=== PATIENT | female | born 1955 | race Two or more races ===

== ENCOUNTER → 2021-03-17 | Outpatient (CLI) | payer OTHER ==
[2021-03-17 09:55] LABS: Basophils # (auto) 0 10 ^3/uL (0-0.2); Basophils % (auto) 0.7 % (0.0-2.0); Eosinophils # (auto) 0.3 10 ^3/uL (0-0.8); Hematocrit 40.7 % (36.0-46.0); Hemoglobin 14.2 g/dL (12.2-16.2); Lymphocytes # (auto) 2.7 10 ^3/uL (0.4-5.4); Mean Corpuscular Hemoglobin 31.7 pg (28.0-32.0); Mean Corpuscular Hgb Conc. 34.8 g/dL (32.0-36.0); Mean Corpuscular Volume 91.2 fL (80.0-100.0); Monocytes # (auto) 0.5 10 ^3/uL (0-1.3); Monocytes % (auto) 7.9 % (0.0-12.0); Neutrophils # (auto) 2.8 10 ^3/uL (1.6-8.6); Neutrophils % (auto) 44.4 % (37.0-80.0); Red Blood Cells 4.46 10^6/uL (4.0-5.20); Red Cell Distribution Width 12.9 % (11.8-14.3); White Blood Cell 6.3 10^3/uL (4.4-10.8)
[2021-03-17 10:57] LABS: BUN/Creatinine Ratio 19.2; Calcium 9.5 mg/dL (8.5-10.1)
== END | disposition home or self-care (01) ==
LOC: LAB 09:34
PROVIDERS: ATTEND Internal Medicine Gastroenterology
DX: E11.9 Type 2 diabetes mellitus without complications (principal); R10.12 Left upper quadrant pain; R94.5 Abnormal results of liver function studies; K90.9 Intestinal malabsorption, unspecified
CPT/HCPCS: 36415; 80048; 80061; 82150; 83036; 83690; 85025; 85049

== ENCOUNTER 2022-11-19 07:59 | Emergency (ER) | payer OTHER, MEDICAID ==
[~2022-11-19] VITALS: Ht 152.4 cm; Wt 68.0 kg
[2022-11-19 08:57] LABS: Urine Bacteria NONE SEEN /hpf (None Seen); Urine Blood Negative /uL (Negative); Urine Specific Gravity 1.016 (1.001-1.035); Urine WBC 13 /hpf (0 - 5)
[2022-11-19 09:04] LABS: Basophils # (auto) 0 10 ^3/uL (0-0.2); Basophils % (auto) 0.3 % (0.0-2.0); Eosinophils # (auto) 0 10 ^3/uL (0-0.8); Eosinophils % (auto) 0.1 % (0.0-7.0); Hematocrit 40.7 % (36.0-46.0); Hemoglobin 13.9 g/dL (12.2-16.2); Lymphocytes # (auto) 2.3 10 ^3/uL (0.4-5.4); Lymphocytes % (auto) 17.8 % (10.0-50.0); Mean Corpuscular Hemoglobin 31.7 pg (28.0-32.0); Mean Corpuscular Hgb Conc. 34.1 g/dL (32.0-36.0); Mean Corpuscular Volume 92.9 fL (80.0-100.0); Monocytes # (auto) 0.8 10 ^3/uL (0-1.3); Monocytes % (auto) 6.6 % (0.0-12.0); Neutrophils # (auto) 9.6 10 ^3/uL (1.6-8.6); Neutrophils % (auto) 75.2 % (37.0-80.0); Nucleated Red Blood Cells % 0.4 %; Red Blood Cells 4.38 10^6/uL (4.0-5.20); White Blood Cell 12.8 10^3/uL (4.4-10.8)
[2022-11-19 09:32] LABS: Calcium 9.3 mg/dL (8.5-10.1); Potassium 3.8 mmol/L (3.5-5.1)
[2022-11-19 09:35] LABS: BUN/Creatinine Ratio 35.6; Bilirubin, Total 0.5 mg/dL (0.2-1.0)
[2022-11-19 10:06] VITALS: BP 144/79
== END 2022-11-19 10:08 | disposition home or self-care (01) ==
LOC: ER 07:59
DX: R51.9 Headache, unspecified (principal); R42 Dizziness and giddiness; R11.0 Nausea; R00.2 Palpitations; I10 Essential (primary) hypertension; E11.9 Type 2 diabetes mellitus without complications
CPT/HCPCS: 36415; 70450; 80053; 81001; 82962; 85025; 93005

== ENCOUNTER 2025-05-30 11:58 | Emergency (ER) | payer OTHER, MEDICAID ==
[~2025-05-30] VITALS: Ht 152.4 cm; Wt 70.9 kg
[~2025-05-30 11:58] MED LIST: COLC1CAP PO; INDO50CA82 PO
--- NOTE | 2025-05-30 12:22 | ED.PDOC ---
GI ASSESSMENT HPI Comments This is a 70 year old female presenting to the ED with chief complaint of abdominal pain. Patient reports that she has been experiencing epigastric abdominal pain with associated nausea, diarrhea, dysuria, and fever for the past 3 days. Patient relays that her pain radiates into her back and is a 9/10. Patient denies any vomiting, chills, headache, chest pain, SOB, hematuria, or flank pain. Chief Complaint: Abdominal Pain Time Seen by MD: 12:20 Reviewed Notes: Nurses Notes, Medications, Allergies Allergies: Coded Allergies: NO KNOWN ALLERGIES (Unverified , 11/19/22) Home Meds Active Scripts Indomethacin (Indomethacin) 50 Mg Cap, 1 CAP PO TID PRN for 5 Days, #15 CAP 1 Refill Prov:NATACHA HATFIELD NP 02/05/24 Colchicine (Colchicine) 0.6 Mg Cap, 0.6 MG PO DAILY PRN for 10 Days, #10 CAP Take one tablet today, wait 1 hour before taking a 2nd dose. May repeat dose in three days if needed. Prov:NATACHA HATFIELD NP 02/05/24 Information Source: Patient, Spouse Mode of Arrival: Ambulatory Timing: Days Duration: Since onset Prehospital treatment: None Quality: Sharp Vomitus: None Stool: Watery Severity: Moderate Recent: None Recent Hx of: None Pain Location: Epigastric Modifying Factors: Nothing Associated sign and symptoms: Nausea, Diarrhea, Abdominal Pain, Fever Past Medical History PAST MEDICAL HISTORY: DM, High Lipids, HTN Surgical History (Other): Neck surgery, left leg surgery, right shoulder surgery PARTS ORDER AND STOCK CLERK History: Denies all PARTS ORDER AND STOCK CLERK Hx Family History Family History: Reviewed,noncontributory to illness Social History Smoker: Non-Smoker Alcohol: Denies ETOH Use Drugs: Denies Drug Use Lives In: Home Constitutional: reports: fever; denies: chills, diaphoresis, fatigue, malaise, sweats, weakness, others EENTM: denies: blurred vision, double vision, ear bleeding, ear discharge, ear drainage, ear pain, ear ringing, eye pain, eye redness, hearing loss, mouth pain, mouth swelling, nasal discharge, nose bleeding, nose congestion, nose pain, photophobia, tearing, throat pain, throat swelling, voice changes, others Respiratory: denies: cough, hemoptysis, orthopnea, SOB at rest, shortness of breath, SOB with excertion, stridor, wheezing, others Cardiovascular: denies: chest pain, dizzy spells, diaphoresis, Dyspnea on exertion, edema, irregular heart beat, left arm pain, lightheadedness, palpitations, PND, syncope, others Gastrointestinal: reports: abdominal pain, diarrhea, nausea; denies: abdomen distended, blood streaked bowels, constipated, dysphagia, difficulty swallowing, hematemesis, melena, poor appetite, poor fluid intake, rectal bleeding, rectal pain, vomiting, others Genitourinary: reports: dysuria; denies: abnormal vagina bleeding, burning, dyspareunia, flank pain, frequency, hematuria, incontinence, pain, , vagina discharge, urgency, others Neurological: denies: dizziness, fainting, headache, left sided numbness, left sided weakness, numbness, paresthesia, pre-existing deficit, right sided numbness, right sided weakness, seizure, speech problems, tingling, tremors, weakness, others Musculoskeletal: denies: back pain, gout, joint pain, joint swelling, muscle p ain, muscle stiffness, neck pain, others Integumetry: denies: bruises, change in color, change in hair/nails, dryness, laceration, lesions, lumps, rash, wounds, others Allergic/Immunocompromised: denies: Difficulty Healing, Frequent Infections, Hives, Itching, others Hematologic/Lymphatic: denies: anemia, blood clots, easy bleeding, easy bruising, swollen glands, others Endocrine: denies: excessive hunger, excessive sweating, excessive thirst, excessive urination, flushing, intolerance to cold, intolerance to heat, unexplained weight gain, unexplained weight loss, others Psychiatric: denies: anxiety, bipolar disorder, depression, hopeless, panic disorder, schizophrenia, sleepless, suicidal, others All Other Systems: Reviewed and Negative Physical Exam General Appearance: Moderate Distress HEENT: Normal ENT Inspection, Pharynx Normal, TMs Normal Neck: Full Range of Motion, Non-Tender, Normal, Normal Inspection Respiratory: Chest Non-Tender, Lungs Clear, No Accessory Muscle Use, No Respiratory Distress, Normal Breath Sounds Cardiovascular: No Edema, No JVD, No Murmur, No Gallop, Normal Peripheral Pulses, Regular Rate/Rhythm Breast Exam: Deferred Gastrointestinal: Epigastric, No Organomegaly, No Pulsatile Mass, Normal Bowel Sounds, Soft, Tenderness Genitalia: Deferred Pelvic: Deferred Rectal: Deferred Extremities: No calf tenderness, Normal capillary refill, Normal inspection, Normal range of motion, Non-tender, No pedal edema Musculoskeletal : Apperance: Normal Neurologic: Alert, freight coordinator II-XII nml as Tested, No Motor Deficits, Normal Affect, Normal Mood, No Sensory Deficits Cerebellar Function: Normal Reflexes: Normal Skin: Dry, Normal Color, Warm Lymphatic: No Adenopathy Was a procedure done? Was a procedure done?: No GI differential Dx Differential Diagnosis: Gastritis/PUD, Gastroenteritis, Inflammatory BD, Isch emic Bowel, Pancreatitis, Electrolyte Imbalance, Food Poisoning X-Ray, Labs, Meds, VS Vital Signs Date Time Temp Pulse Resp B/P (MAP) Pulse Ox O2 Delivery O2 Flow Rate FiO2 05/30/25 12:00 98.1 90 16 116/47 98 98.1 Lab Test 05/30/25 13:10 Range/Units White Blood Count 5.4 4.4-10.8 10^3/uL Red Blood Count 4.24 4.0-5.20 10^6/uL Hemoglobin 13.5 12.2-16.2 g/dL Hematocrit 38.4 36.0-46.0 % Mean Corpuscular Volume 90.6 80.0-100.0 fL Mean Corpuscular Hemoglobin 31.8 28.0-32.0 pg Mean Corpuscular Hemoglobin Concent 35.1 32.0-36.0 g/dL Red Cell Distribution Width 13.3 11.8-14.3 % Platelet Count 110 L 140-450 10^3/uL Mean Platelet Volume 8.6 6.9-10.8 fL Neutrophils (%) (Auto) 65.3 37.0-80.0 % Lymphocytes (%) (Auto) 24.0 10.0-50.0 % Monocytes (%) (Auto) 10.2 0.0-12.0 % Eosinophils (%) (Auto) 0.1 0.0-7.0 % Basophils (%) (Auto) 0.4 0.0-2.0 % Neutrophils # (Auto) 3.5 1.6-8.6 10 ^3/uL Lymphocytes # (Auto) 1.3 0.4-5.4 10 ^3/uL Monocytes # (Auto) 0.5 0-1.3 10 ^3/uL Eosinophils # (Auto) 0 0-0.8 10 ^3/uL Basophils # (Auto) 0 0-0.2 10 ^3/uL Nucleated Red Blood Cells 0.1 % Sodium Level 139 136-145 mmol/L Potassium Level 3.4 L 3.5-5.1 mmol/L Chloride Level 104 98-107 mmol/L Carbon Dioxide Level 20 20-31 mmol/L Anion Gap 15 5-15 Blood Urea Nitrogen 14 9-23 mg/dL Creatinine 1.06 H 0.550-1.02 mg/dL Glomerular Filtration Rate Calc 56 >90 mL/min BUN/Creatinine Ratio 13.2 10.0-20.0 Serum Glucose 117 H 74-106 mg/dL Calcium Level 9.1 8.7-10.4 mg/dL Total Bilirubin 0.6 0.2-1.0 mg/dL Aspartate Amino Transferase (AST) 38 13-40 U/L Alanine Aminotransferase (ALT) 17 7-40 U/L Alkaline Phosphatase 58 46-116 U/L Total Protein 7.4 5.7-8.2 g/dL Albumin 4.4 3.2-4.8 g/dL Lipase 101 H 12-53 U/L Current Medications Medications (Trade) Dose Ordered Sig/Obinna Route Start Time Stop Time Status Last Admin Ondansetron HCl (Zofran) 4 mg ONCE ONCE IV 05/30/25 12:30 05/30/25 12:31 DC 05/30/25 13:19 Sodium Chloride 500 ml @ 500 mls/hr Q1H ONCE IVB 05/30/25 12:30 05/30/25 13:29 DC 05/30/25 13:19 Pantoprazole Sodium (Protonix) 40 mg ONCE ONCE IV 05/30/25 12:30 05/30/25 12:31 DC 05/30/25 13:19 Gallbladder US indicates: Sludge within the gallbladder. Otherwise, the gallbladder is unremarkable. 4.5 cm right renal cyst. Pancreas is obscured by bowel gas. IV Hep-Lock was established. The patient was given normal saline as a 500 cc bolus The patient was given Zofran 4 mg IV push The patient was given Protonix 40 mg IV push The lipase is elevated at 101 The chemistry panel shows a creatinine of 1.06 The rest of the CBC is within normal limits At this time, the patient will be admitted to the hospitalist The patient understands and agrees with the management. Images Reviewed?: Images reviewed and evaluated by me Time of 1ST Reevaluation: 16:30 Reevaluation 1ST: Unchanged Patient Education/Counseling: Diagnosis, Treatment, Prognosis Family Education/Counseling: Diagnosis, Treatment, Prognosis SEPSIS Sepsis Screen Date sepsis recognized/suspect: May 30, 2025 Time Sepsis recognized/suspect: 1202 Recent Procedure: No On Antibiotic Therapy: No Respiratory Rate >20: No Heart Rate >90: No Temp<36 C (96.8 F) or >38.3 C: No SBP <90 or MAP <65 mmHG: No New Acute Mental Status Change: No Is the patient on CPAP, BIPAP,: No Physician Orders Urinalysis (05/30/25 12:19) Heplock Iv (05/30/25 12:19) Gallbladder (05/30/25 12:19) Vital Signs Date Time Temp Pulse Resp B/P (MAP) Pulse Ox O2 Delivery O2 Flow Rate FiO2 05/30/25 12:00 98.1 90 16 116/47 98 98.1 Laboratory Tests Test 05/30/25 13:10 White Blood Count 5.4 10^3/uL (4.4-10.8) Medications Medications Dose Ordered Sig/Obinna Route Start Time Stop Time Status Last Admin Dose Admin Ondansetron HCl 4 mg ONCE ONCE IV 05/30/25 12:30 05/30/25 12:31 DC 05/30/25 13:19 Pantoprazole Sodium 40 mg ONCE ONCE IV 05/30/25 12:30 05/30/25 12:31 DC 05/30/25 13:19 Sodium Chloride 500 ml @ 500 mls/hr Q1H ONCE IVB 05/30/25 12:30 05/30/25 13:29 DC 05/30/25 13:19 Departure 1 Departure Time of Disposition: 16:30 Impression: Primary Impression: Intractable abdominal pain Additional Impression: Cholelithiasis Qualified Codes: K80.20 - Calculus of gallbladder without cholecystitis without obstruction Disposition: 09 ADMITTED INPATIENT Admit to: Med Surg Condition: Fair Critical Care Note Critical Care Time?: No Stability Stability form required: Yes Unstable for transfer: ED Physician Assesment (Clinical assesment) Heart Score Heart Score: Heart Score Response (Comments) Value History N/A 0 EKG N/A 0 Age N/A 0 Risk Factors N/A 0 Troponin N/A 0 Total 0 I personally scribed for CRISS PRUITT MD ([email or web address]) on 05/30/25 at 12:22. Electronically submitted by Catracho Garcia ([email or web address]). I personally scribed for CRISS PRUITT MD ([email or web address]) on 05/30/25 at 13:56. Electronically submitted by Catracho Garcia ([email or web address]). CRISS PRUITT MD May 30, 2025 12:22
[2025-05-30] MEDS: ONDANSETRON HCL 4 MG/2 ML VIAL IV ONE ×2 (13:19→23:12)
[2025-05-30] MEDS: SODIUM CHLORIDE 0.9% 500 ML IVB ONE (13:19)
[2025-05-30] MEDS: PANTOPRAZOLE 40 MG/10 ML VIAL INJ IV ONE (13:19)
[2025-05-30 13:25] LABS: Hematocrit 38.4 % (36.0-46.0); Hemoglobin 13.5 g/dL (12.2-16.2); Mean Corpuscular Hemoglobin 31.8 pg (28.0-32.0); Mean Corpuscular Volume 90.6 fL (80.0-100.0); Nucleated Red Blood Cells % 0.1 %
--- NOTE | 2025-05-30 13:35 | DVH ---
Procedure: US GALLBLADDER Study Date and Requested Time: 05/30/2025 12:33 PM History: pain Comparison: None Technique: Multiple high resolution jonas-scale images obtained of the right upper quadrant of the abd omen with color Doppler for evaluation of blood flow and vascularity as indicated. Findings: Liver normal in size, measuring 14.3 cm in length, with heterogeneous echogenicity and normal contour s. No evidence of focal hepatic lesions, intrahepatic or extrahepatic ductal dilatation. Common bile duct measures 0.6 cm in diameter. Sludge within the gallbladder. Otherwise, the gallbladder is unremarkable unremarkable with no evide nce of abnormal wall thickening, gallstones, or pericholecystic fluid. Negative sonographic Garcia's sign. Pancreas obscured by bowel gas. Right kidney measures 9.5 cm in length, with normal contours, echotexture, and cortical thickness. No evidence of hydronephrosis, or calculi. 4.4 x 3.9 x 4.1 cm right renal cyst. Partially visualized inferior vena cava unremarkable. Impression: Sludge within the gallbladder. Otherwise, the gallbladder is unremarkable. 4.5 cm right renal cyst. Pancreas is obscured by bowel gas.
[2025-05-30 13:42] LABS: Alanine Aminotransferase 17 U/L (7-40); Albumin 4.4 g/dL (3.2-4.8); Alkaline Phosphatase 58 U/L (46-116); Anion Gap 15 (5-15); BUN/Creatinine Ratio 13.2 (10.0-20.0); Bilirubin, Total 0.6 mg/dL (0.2-1.0); Blood Urea Nitrogen 14 mg/dL (9-23); Calcium 9.1 mg/dL (8.7-10.4); Carbon Dioxide 20 mmol/L (20-31); Chloride 104 mmol/L (98-107); Sodium 139 mmol/L (136-145); Total Protein 7.4 g/dL (5.7-8.2)
[2025-05-30 13:45] LABS: Glucose 117 mg/dL (74-106); Lipase 101 U/L (12-53); Potassium 3.4 mmol/L (3.5-5.1)
[2025-05-30] MEDS: MORPHINE SULFATE INJ 2 MG/ml SYRG IV ONE (17:38)
[2025-05-30] MEDS: IOHEXOL 300 MG/ML 100ML BOTTLE IJ ONE (21:03)
--- NOTE | 2025-05-30 21:21 | DVH ---
Exam: CT CT AB PEL WITH IV CON ONLY History: abdominal pain Comparison Study: None TECHNIQUE: Multidetector CT of the abdomen was performed from lung bases to pubic symphysis. Imaging was performed without IV contrast. Axial, coronal and sagittal multiplanar reformats were obtained fr om the axial data set by the technologist. Radiation Dose Information: CT Dose: CTDI volume is 13.07 mGy. Dose-length product is 749.2 mGy*cm Omnipaque 300: 100 mL FINDINGS: Evaluation of solid organs is limited due to lack of intravenous contrast use. Findings: Lung Bases: No acute or significant lung base finding. Normal heart size. No pleural or pericardial effusion. Liver: The liver is normal in size. No focal lesions. Gallbladder and Biliary Tree: Unremarkable Spleen: Unremarkable Pancreas: The pancreas is grossly normal in appearance. Adrenal Glands: Unremarkable Kidneys: Kidneys are grossly normal without calculi or hydronephrosis. 5 cm cyst upper pole right kid mitchell Bladder: Grossly unremarkable for degree of distention. Bowel: The stomach is grossly normal in appearance. Small bowel and colon are normal in caliber and d istribution. The appendix is not visualized; however, no secondary findings of acute appendicitis id entified. Ascites: Absent Lymphadenopathy: No mesenteric, retroperitoneal or periportal lymphadenopathy. Abdominal Wall and Mesentery: Unremarkable. Vasculature: The visualized abdominal aorta is normal in size and caliber. Evaluation of abdominal a nd pelvic vessels is limited due to lack of intravenous contrast. Pelvic Organs: Unremarkable Musculoskeletal: No aggressive focal bony lesions, acute fractures or dislocation. Soft tissues: Unremarkable IMPRESSION: 1. 5 cm simple cyst right kidney 2. No CT findings of bowel obstruction 3. No nephrolithiasis or hydronephrosis 4. No calcified gallstones. 5. No free air or free fluid. Radiation optimization: All CT scans at this facility use at least one of these dose optimization marie hniques: automated exposure control mA and/or kV adjustment per patient size (includes targeted exam s where dose is matched to clinical indication) or iterative reconstruction.
[2025-05-30 22:14] VITALS: BP 119/66; PULSE 78; RESP 20; TEMP 98.2; O2SAT 99
[2025-05-30 22:39] LABS: Urine Protein, UAD 1+ (Negative)
--- NOTE | 2025-05-30 22:40 | DVHINCON2 ---
ZULMA VARGAS BROADCAST JOURNALIST 05/30/25 2239: Date of service: May 30, [address] Miller Reason for Consultation Medical management History of Present Illness [age] year old female presents with complaints of abdominal pain, nausea without vomiting x3 days. Patient endorsed a subjective fever. Patient denies any sick contacts. During the emergency department evaluation CBC is unremarkable. CMP is unremarkable, lipase is mildly elevated at [address] evidence of acute pancreatitis. UA is negative for infection. Gallbladder ultrasound read sludge within the gallbladder otherwise unremarkable. CT of the abdomen and pelvis had no acute findings. At this time there are no complaints of dizziness, shortness of breath, chest pain, palpitations, leg swelling, hematemesis, hematuria, hematochezia, melena. Allergies: Coded Allergies: NO KNOWN ALLERGIES (Unverified , 11/19/22) Home Meds Active Scripts Ondansetron Odt 4MG Tab (ZOFRAN PO) 4 Mg Tb, 4 MG PO Q8HR for 3 Days, #9 TAB ODT TAB-DISSOLVE IN MOUTH, THEN SWALLOW Prov:ZULMA VARGAS NP 05/30/25 Indomethacin (Indomethacin) 50 Mg Cap, 1 CAP PO TID PRN for 5 Days, #15 CAP 1 Refill Prov:NATACHA HATFIELD NP 02/05/24 Colchicine (Colchicine) 0.6 Mg Cap, 0.6 MG PO DAILY PRN for 10 Days, #10 CAP Take one tablet today, wait 1 hour before taking a 2nd dose. May repeat dose in three days if needed. Prov:NATACHA HATFIELD NP 02/05/24 Review of Systems 10 systems reviewed and negative except as per HPI Vital Signs Vital Signs Date Time Temp Pulse Resp B/P (MAP) Pulse Ox O2 Delivery O2 Flow Rate FiO2 05/30/25 22:14 98.2 78 20 119/66 (83) 99 98.2 05/30/25 22:14 Room Air Physical Exam GENERAL: Patient appearing stated age, in no acute distress. HEENT: Pupils equal and reactive to light and accommodation. Extraocular muscles intact. Mucous membranes moist. Conjunctivae pink. Anicteric sclerae. LUNGS: Bilateral air entry. No wheezes, rhonchi or rales. HEART: Regular rate and rhythm. Normal S1 and S2. ABDOMEN: BS normoactive, soft, nontender, and nondistended. No CVA tenderness. EXTREMITIES: No clubbing, cyanosis, edema. No calf tenderness. Pedal pulses 2+. NEUROLOGICAL: The patient is alert and oriented times 3. CN II-XII intact. No focal deficits on gross sensory or motor examination. Labs/Diagnostic Data Labs Test 05/30/25 21:00 05/30/25 13:10 Range/Units White Blood Count 5.4 4.4-10.8 10^3/uL Red Blood Count 4.24 4.0-5.20 10^6/uL Hemoglobin 13.5 12.2-16.2 g/dL Hematocrit 38.4 36.0-46.0 % Mean Corpuscular Volume 90.6 80.0-100.0 fL Mean Corpuscular Hemoglobin 31.8 28.0-32.0 pg Mean Corpuscular Hemoglobin Concent 35.1 32.0-36.0 g/dL Red Cell Distribution Width 13.3 11.8-14.3 % Platelet Count 110 L 140-450 10^3/uL Mean Platelet Volume 8.6 6.9-10.8 fL Neutrophils (%) (Auto) 65.3 37.0-80.0 % Lymphocytes (%) (Auto) 24.0 10.0-50.0 % Monocytes (%) (Auto) 10.2 0.0-12.0 % Eosinophils (%) (Auto) 0.1 0.0-7.0 % Basophils (%) (Auto) 0.4 0.0-2.0 % Neutrophils # (Auto) 3.5 1.6-8.6 10 ^3/uL Lymphocytes # (Auto) 1.3 0.4-5.4 10 ^3/uL Monocytes # (Auto) 0.5 0-1.3 10 ^3/uL Eosinophils # (Auto) 0 0-0.8 10 ^3/uL Basophils # (Auto) 0 0-0.2 10 ^3/uL Nucleated Red Blood Cells 0.1 % Sodium Level 139 136-145 mmol/L Potassium Level 3.4 L 3.5-5.1 mmol/L Chloride Level 104 98-107 mmol/L Carbon Dioxide Level 20 20-31 mmol/L Anion Gap 15 5-15 Blood Urea Nitrogen 14 9-23 mg/dL Creatinine 1.06 H 0.550-1.02 mg/dL Glomerular Filtration Rate Calc 56 >90 mL/min BUN/Creatinine Ratio 13.2 10.0-20.0 Serum Glucose 117 H 74-106 mg/dL Calcium Level 9.1 8.7-10.4 mg/dL Total Bilirubin 0.6 0.2-1.0 mg/dL Aspartate Amino Transferase (AST) 38 13-40 U/L Alanine Aminotransferase (ALT) 17 7-40 U/L Alkaline Phosphatase 58 46-116 U/L Total Protein 7.4 5.7-8.2 g/dL Albumin 4.4 3.2-4.8 g/dL Lipase 101 H 12-53 U/L Assessment Abdominal pain Biliary colic The patient was seen and evaluated in the ER lobby. Patient's chart was reviewed in its entirety, including lab work, ultrasound, and I ordered CT of the abdomen pelvis. Lab work is essentially unremarkable W 5.4, H&H 13.5/30.4, PLT 110, and a 139, K3.4, BUN 14, creatinine 1.06, GFR 56, lipase [address] evidence of acute pancreatitis. UA was negative for infection.Gallbladder ultrasound did present sludge within the gallbladder otherwise unremarkable. CT of the abdomen pelvis with contrast was interpreted per the radiologist and reviewed by myself. Impression reads 5 cm simple cyst on the right kidney. No CT findings of bowel obstruction, nephrolithiasis, or hydronephrosis. No calcified gallstones. No free air or free fluid. Patient is hemodynamically stable temperature 98.2, BP 119/66, HR 78, RR 20 BPM, oxygen saturation 99% on room air. Patient is not toxic appearing and able to ambulate independently with steady gate. Plan/Recommendation Given the lab work is unremarkable and there's no CT evidence of acute abdomen. Patient is being discharged home with close follow up. She was provided with a pain pill for abdominal pain per her request, prior to discharge. O nurse case manager Sara has been consulted to establish home safety evaluation, outpatient follow up with gastroenterology for abdominal pain, and outpatient referral to general surgeon for evaluation of cholelithiasis. Plan of care was discussed in detail with the patient who states that she understands and agrees with the current plan of care. The patient was provided with strict ER precautions, including unlimited to fevers, chills, syncope, shortness of breath, dizziness, chest pain, p alpitations, Nausea, vomiting, blood in emesis, blood in stoo Plan discussed with: Patient ART SANDERS MD 05/31/25 1442: Allergies: Coded Allergies: NO KNOWN ALLERGIES (Unverified , 11/19/22) Home Meds Active Scripts Ondansetron Odt 4MG Tab (ZOFRAN PO) 4 Mg Tb, 4 MG PO Q8HR for 3 Days, #9 TAB ODT TAB-DISSOLVE IN MOUTH, THEN SWALLOW Prov:ZULMA VARGAS NP 05/30/25 Indomethacin (Indomethacin) 50 Mg Cap, 1 CAP PO TID PRN for 5 Days, #15 CAP 1 Refill Prov:NATACHA HATFIELD NP 02/05/24 Colchicine (Colchicine) 0.6 Mg Cap, 0.6 MG PO DAILY PRN for 10 Days, #10 CAP Take one tablet today, wait 1 hour before taking a 2nd dose. May repeat dose in three days if needed. Prov:NATACHA HATFIELD NP 02/05/24 Additional Comments Additional Comments Additional Comments Patient's chart reviewed and discussed with the nurse practitioner. Patient was seen evaluated and discharged from ER by nurse practitioner. I agree with his evaluation, documentation, assessment and care plan as outlined. ZULMA VARGAS NP May 30, 2025 22:39 ART SANDERS MD May 31, 2025 14:42
--- NOTE | 2025-05-30 22:43 | DVHINCON2 ---
Date of service: May 30, [address] Miller Reason for Consultation Medical Management Allergies: Coded Allergies: NO KNOWN ALLERGIES (Unverified , 11/19/22) Home Meds Active Scripts Ondansetron Odt 4MG Tab (ZOFRAN PO) 4 Mg Tb, 4 MG PO Q8HR for 3 Days, #9 TAB ODT TAB-DISSOLVE IN MOUTH, THEN SWALLOW Prov:ZULMA VARGAS TOOL PROGRAMMER 05/30/25 Indomethacin (Indomethacin) 50 Mg Cap, 1 CAP PO TID PRN for 5 Days, #15 CAP 1 Refill Prov:NATACHA HATFIELD TOOL PROGRAMMER 02/05/24 Colchicine (Colchicine) 0.6 Mg Cap, 0.6 MG PO DAILY PRN for 10 Days, #10 CAP Take one tablet today, wait 1 hour before taking a 2nd dose. May repeat dose in three days if needed. Prov:NATACHA HATFIELD TOOL PROGRAMMER 02/05/24 Review of Systems 10 systems reviewed and negative except as per HPI Vital Signs Vital Signs Date Time Temp Pulse Resp B/P (MAP) Pulse Ox O2 Delivery O2 Flow Rate FiO2 05/30/25 22:14 98.2 78 20 119/66 (83) 99 98.2 05/30/25 22:14 Room Air Labs/Diagnostic Data Labs Test 05/30/25 21:00 05/30/25 13:10 Range/Units Urine Color Yellow Yellow Urine Clarity Clear Clear Urine pH 6.0 5.0-9.0 Urine Specific Clements > 1.050 H 1.001-1.035 Urine Protein 1+ H Negative Urine Ketones 2+ H Negative Urine Blood 1+ H Negative /uL Urine Nitrite Negative Negative Urine Bilirubin Negative Negative Urine Urobilinogen Normal Negative mg/dL Urine Leukocyte Esterase Negative Negative /uL Urine RBC 11 0 - 4 /hpf Urine Microscopic WBC 29 H 0-5 /HPF Urine Squamous Epithelial Cells Mod <5 /hpf Urine Bacteria None seen None Seen /hpf Urine Mucus Few None Seen Urine Glucose Normal Normal mg/dL White Blood Count 5.4 4.4-10.8 10^3/uL Red Blood Count 4.24 4.0-5.20 10^6/uL Hemoglobin 13.5 12.2-16.2 g/dL Hematocrit 38.4 36.0-46.0 % Mean Corpuscular Volume 90.6 80.0-100.0 fL Mean Corpuscular Hemoglobin 31.8 28.0-32.0 pg Mean Corpuscular Hemoglobin Concent 35.1 32.0-36.0 g/dL Red Cell Distribution Width 13.3 11.8-14.3 % Platelet Count 110 L 140-450 10^3/uL Mean Platelet Volume 8.6 6.9-10.8 fL Neutrophils (%) (Auto) 65.3 37.0-80.0 % Lymphocytes (%) (Auto) 24.0 10.0-50.0 % Monocytes (%) (Auto) 10.2 0.0-12.0 % Eosinophils (%) (Auto) 0.1 0.0-7.0 % Basophils (%) (Auto) 0.4 0.0-2.0 % Neutrophils # (Auto) 3.5 1.6-8.6 10 ^3/uL Lymphocytes # (Auto) 1.3 0.4-5.4 10 ^3/uL Monocytes # (Auto) 0.5 0-1.3 10 ^3/uL Eosinophils # (Auto) 0 0-0.8 10 ^3/uL Basophils # (Auto) 0 0-0.2 10 ^3/uL Nucleated Red Blood Cells 0.1 % Sodium Level 139 136-145 mmol/L Potassium Level 3.4 L 3.5-5.1 mmol/L Chloride Level 104 98-107 mmol/L Carbon Dioxide Level 20 20-31 mmol/L Anion Gap 15 5-15 Blood Urea Nitrogen 14 9-23 mg/dL Creatinine 1.06 H 0.550-1.02 mg/dL Glomerular Filtration Rate Calc 56 >90 mL/min BUN/Creatinine Ratio 13.2 10.0-20.0 Serum Glucose 117 H 74-106 mg/dL Calcium Level 9.1 8.7-10.4 mg/dL Total Bilirubin 0.6 0.2-1.0 mg/dL Aspartate Amino Transferase (AST) 38 13-40 U/L Alanine Aminotransferase (ALT) 17 7-40 U/L Alkaline Phosphatase 58 46-116 U/L Total Protein 7.4 5.7-8.2 g/dL Albumin 4.4 3.2-4.8 g/dL Lipase 101 H 12-53 U/L Assessment Abdominal pain Biliary colic ZULMA VARGAS TOOL PROGRAMMER May 30, 2025 22:43
[2025-05-30] MEDS ORDERED: ZOFR4T PO (22:44)
[2025-05-30] MEDS: HYDROcodone-ACET 7.5/325MG TAB PO ONE (23:18)
== END 2025-05-30 23:54 | disposition home or self-care (01) ==
LOC: ER 11:58
DX: K80.70 Calculus of gallbladder and bile duct without cholecystitis without obstruction (principal); R10.84 Generalized abdominal pain; I10 Essential (primary) hypertension; E11.9 Type 2 diabetes mellitus without complications; Z79.899 Other long term (current) drug therapy
CPT/HCPCS: 36415; 74177; 76705; 80053; 81001; 83690; 85025; 96374; 96375; 96376; 99285; J2270; J2405; J2470; Q9967